=== PATIENT | female | born 1985 | race Caucasian/White ===

== ENCOUNTER 2018-04-23 00:20 | Inpatient (IN) | payer OTHER, SELFPAY ==
[2018-04-22 22:25] LABS: HEMATOCRIT 36.7 % (36.0-47.0); HEMOGLOBIN 12.6 g/dl (12.0-15.5); MEAN CORPUSCULAR HEMOGLOBIN 29.9 pg (27.0-33.0); MEAN CORPUSCULAR HGB CONC 34.3 g/dl (32.0-36.5); PLATELET COUNT, AUTOMATED 382 10^3/uL (150-450); RED BLOOD COUNT 4.22 10^6/uL (4.00-5.40); RED CELL DISTRIBUTION WIDTH 13.2 % (11.5-14.5); WHITE BLOOD COUNT 23.9 10^3/uL (4.0-10.0)
[2018-04-22 22:43] LABS: CONTROL LINE HCG INT CTR LINE PRESENT
[2018-04-22 22:45] LABS: HCG, SERUM QUALITATIVE POSITIVE (NEGATIVE)
[2018-04-22 23:07] LABS: ALBUMIN 2.7 GM/DL (3.2-5.2); ALBUMIN/GLOBULIN RATIO 0.64 (1.00-1.93); ALKALINE PHOSPHATASE 104 U/L (45-117); ALT/SGPT 27 U/L (12-78); ANION GAP 11 MEQ/L (8-16); AST/SGOT 13 U/L (7-37); BILIRUBIN,DIRECT < 0.1 MG/DL (0.0-0.2); BILIRUBIN,TOTAL 0.2 MG/DL (0.2-1.0); BLOOD UREA NITROGEN 5 MG/DL (7-18); CALCIUM LEVEL 8.8 MG/DL (8.5-10.1); CARBON DIOXIDE LEVEL 21 MEQ/L (21-32); CHLORIDE LEVEL 107 MEQ/L (98-107); CREATININE FOR GFR 0.54 MG/DL (0.55-1.30); ETHYL ALCOHOL (ETHANOL) 0.004 % (0.000-0.010); GLOMERULAR FILTRATION RATE > 60.0 (>60); GLUCOSE, FASTING 90 MG/DL (70-100); HCG, SERUM QUANTITATIVE 6912 MIU/ML; POTASSIUM SERUM 3.8 MEQ/L (3.5-5.1); SALICYLATE LEVEL < 1.7 MG/DL (5.0-30.0); SODIUM LEVEL 139 MEQ/L (136-145); TOTAL PROTEIN 6.9 GM/DL (6.4-8.2)
[2018-04-22 23:08] LABS: ACETAMINOPHEN LEVEL < 2.0 UG/ML (10.0-30.0)
[2018-04-23 00:14] LABS: AMPHETAMINES LEVEL URINE NEGATIVE (NEGATIVE); BARBITURATES URINE NEGATIVE (NEGATIVE); BENZODIAZEPINES URINE NEGATIVE (NEGATIVE); CANNABINOIDS URINE NEGATIVE (NEGATIVE); COCAINE METABOLITE URINE NEGATIVE (NEGATIVE); METHADONE URINE NEGATIVE (NEGATIVE); OPIATES URINE NEGATIVE (NEGATIVE); PHENCYCLIDINE URINE NEGATIVE (NEGATIVE)
[2018-04-23] MEDS ORDERED: hydrOXYzine 25 MG TAB PO (00:45)
[2018-04-23] MEDS ORDERED: ACETAMINOPHEN TAB 650MG DOSE (2X325MG) PO (00:45)
[2018-04-23] MEDS ORDERED: diphenhydrAMINE 25 MG CAP PO (00:45)
[2018-04-23] MEDS: FAMOTIDINE 20 MG TAB PO (09:00)
[2018-04-23] MEDS: PRENATAL VITAMINS CHEWABLE TABLET PO (10:11)
[2018-04-23 10:18] LABS: HEMATOCRIT 35.5 % (36.0-47.0); HEMOGLOBIN 12.1 g/dl (12.0-15.5); MEAN CORPUSCULAR HEMOGLOBIN 30.1 pg (27.0-33.0); MEAN CORPUSCULAR HGB CONC 34.1 g/dl (32.0-36.5); MEAN CORPUSCULAR VOLUME 88.3 fl (80.0-96.0); PLATELET COUNT, AUTOMATED 364 10^3/uL (150-450); RED BLOOD COUNT 4.02 10^6/uL (4.00-5.40); RED CELL DISTRIBUTION WIDTH 13.2 % (11.5-14.5); WHITE BLOOD COUNT 18.1 10^3/uL (4.0-10.0)
== END 2018-04-23 13:30 | disposition home or self-care (01) | DRG 781 ==
LOC: M ED 00:20 → M ED INP 00:43 → M PSY 01:17
DX: O99.343 Other mental disorders complicating pregnancy, third trimester (principal); K21.9 Gastro-esophageal reflux disease without esophagitis; G43.909 Migraine, unspecified, not intractable, without status migrainosus; Z88.0 Allergy status to penicillin; Z91.018 Allergy to other foods; Z88.7 Allergy status to serum and vaccine; F43.21 Adjustment disorder with depressed mood; D72.829 Elevated white blood cell count, unspecified

== ENCOUNTER 2018-07-24 22:50 | Inpatient (IN) | payer OTHER ==
[2018-07-25 00:56] LABS: BASO # 0.1 10^3/uL (0.0-0.2); BASO % 0.4 % (0.0-1.0); EOS # 0.4 10^3/uL (0.0-0.50); EOS % 2.7 % (0.0-3.0); HEMATOCRIT 35.2 % (36.0-47.0); HEMOGLOBIN 11.7 g/dl (12.0-15.5); IMMATURE GRANULOCYTE % 2.4 % (0-3.0); LYMPH % 21.7 % (24.0-44.0); MEAN CORPUSCULAR HEMOGLOBIN 29.9 pg (27.0-33.0); MEAN CORPUSCULAR HGB CONC 33.2 g/dl (32.0-36.5); MONO # 1.3 10^3/uL (0.0-0.8); MONO % 9.5 % (0.0-5.0); NEUTROPHILS # 8.8 10^3/uL (1.8-7.7); NEUTROPHILS % 63.3 % (36.0-66.0); PLATELET COUNT, AUTOMATED 319 10^3/uL (150-450); RED BLOOD COUNT 3.91 10^6/uL (4.00-5.40); WHITE BLOOD COUNT 13.9 10^3/uL (4.0-10.0)
[2018-07-25] MEDS: LR 1,000 ML IV ×4 (02:38→18:31)
[2018-07-25] MEDS: NALBUPHINE HCL 10 MG/ML AMP (J2300) IV (03:02)
[2018-07-25] MEDS: PROMETHAZINE INJ 25 MG/ML VIAL (J2550) IV (03:10)
[2018-07-25] MEDS ORDERED: FENTANYL 2MCG/ML ROPIVACAINE 0.2% IN 0.9% NACL 200ML IVBAG As Ordered (09:29)
[2018-07-25] MEDS: FENTANYL/ROPIVACAINE/NACL BAG 200 ML EPIDURAL (10:17)
[2018-07-25] MEDS ORDERED: NALOXONE INJ 0.4 MG/1 ML VIAL (J2310) IV (11:15)
[2018-07-25] MEDS ORDERED: EPIDURAL/PCA KEYS XX (11:15)
[2018-07-25] MEDS ORDERED: diphenhydrAMINE INJ 50MG/ML VIAL (J1200) IV (11:15)
[2018-07-25] MEDS ORDERED: ONDANSETRON 4MG/2ML VIAL (J2405) IV (11:15)
[2018-07-25] MEDS ORDERED: REFRIGERATOR IV KEYS XX (11:15)
[2018-07-25] MEDS ORDERED: EPIDURAL COMMENT XX (11:15)
[2018-07-25] MEDS ORDERED: ePHEDrine SULFATE 25 MG/5 ML(5MG/ML) SYRINGE IV (11:15)
[2018-07-25] MEDS ORDERED: LACTATED RINGER'S 1000 ML IV (11:15)
[2018-07-25] MEDS: OXYTOCIN DRIP 30 UNITS in APPROPRIATE DILUENT 1 EA IV ×2 (11:33→22:39)
[2018-07-25] MEDS ORDERED: ACETAMINOPHEN TAB 650MG DOSE (2X325MG) PO (15:00)
[2018-07-25] MEDS: ACETAMINOPHEN 500 MG TAB PO (15:05)
[2018-07-25] MEDS ORDERED: ACETAMINOPHEN 500 MG TAB PO (22:45)
[2018-07-25] MEDS ORDERED: DOCUSATE SODIUM 100 MG CAP PO (22:45)
[2018-07-26] MEDS: DIBUCAINE 1% OINTMENT 30GM TOP (01:03)
[2018-07-26] MEDS: IBUPROFEN 800 MG TAB PO ×2 (01:03→12:19)
[2018-07-26] MEDS: FENTANYL/ROPIVACAINE/NACL BAG 200 ML EPIDURAL (07:15)
[2018-07-26] MEDS: RHOGAM 300 MCG (1500 IU) INJ (J2790) IM (07:17)
[2018-07-26] MEDS: MEASLES,MUMPS,RUBELLA VACCINE INJ (MMR-II) (90707) SC (07:17)
[2018-07-26] MEDS: PRENATAL VITAMINS CHEWABLE TABLET PO (07:58)
[2018-07-27] MEDS: FENTANYL/ROPIVACAINE/NACL BAG 200 ML EPIDURAL (03:15)
[2018-07-27] MEDS: PRENATAL VITAMINS CHEWABLE TABLET PO (08:52)
== END 2018-07-27 10:10 | disposition home or self-care (01) | DRG 775 ==
LOC: M LDI 22:50 → M OBS 07-26 00:41
PROVIDERS: Obstetrics & Gynecology
PROC: 10E0XZZ Delivery of Products of Conception, External Approach (ICD-10-PCS; principal; 2018-07-25)
PROC: 0U7C7ZZ Dilation of Cervix, Via Natural or Artificial Opening (ICD-10-PCS; 2018-07-25)
PROC: 0HQ9XZZ Repair Perineum Skin, External Approach (ICD-10-PCS; 2018-07-25)
DX: O48.0 Post-term pregnancy (principal); Z68.42 Body mass index [BMI] 45.0-49.9, adult; Z37.0 Single live birth; Z3A.40 40 weeks gestation of pregnancy; E66.9 Obesity, unspecified; K21.9 Gastro-esophageal reflux disease without esophagitis; F41.9 Anxiety disorder, unspecified; Z91.018 Allergy to other foods; Z88.0 Allergy status to penicillin; Z88.8 Allergy status to other drugs, medicaments and biological substances; Z79.899 Other long term (current) drug therapy; O77.0 Labor and delivery complicated by meconium in amniotic fluid; O69.82X0 Labor and delivery complicated by other cord entanglement, without compression, not applicable or unspecified; O70.0 First degree perineal laceration during delivery; O99.214 Obesity complicating childbirth; O99.344 Other mental disorders complicating childbirth; O99.62 Diseases of the digestive system complicating childbirth